=== PATIENT | male | born 1950 | race Caucasian/White ===

== ENCOUNTER 2024-10-07 10:55 | Day surgery (SDC) | payer MEDICARE ==
[2024-10-03 09:58] LABS: MEAN PLATELET VOLUME 8.1 FL (7.4-10.4); RED CELL DISTRIBUTION WIDTH 12.6 % (11.5-14.5)
[2024-10-03 10:26] LABS: CHOL/HDL RATIO 2.3 (0.00-4.99); CREATININE 1.06 MG/DL (0.60-1.10); TOTAL CARBON DIOXIDE 30.0 MMOL/L (24-32); eGFR 69 ML/MIN
[2024-10-03 11:08] LABS: LDL CHOLESTEROL 60 MG/DL (50-100)
[~2024-10-07] VITALS: Ht 182.9 cm; Wt 90.7 kg
[2024-10-07] VITALS (8 sets, daily range): BP systolic 144–167; BP diastolic 77–88; PULSE 55–66; RESP 16; TEMP 97.5; O2SAT 94–98
[~2024-10-07 10:55] MED LIST: ALLO300T8 PO; ASPI-1265 PO; CHOL400T8 PO; EVOL140P3 SQ; NAPR220C15 PO
--- NOTE | 2024-10-07 11:28 | ELECTROCARDIOGRAPH REPORT ---
[facility] Test Date: 2024-10-07 Test Time: 11:15:54 Pat Name: MADDY GARCIA Department: PRE/OP CARDIOLOGY [id number] Room: Gender: M Framer: : 1950 Requested By: STAR GILL Order Number: [id number] Reading MD: Dr. RAMILA Fritz Measurements Intervals [place] Rate: 62 P: 44 W[place]: 150 QRS: 18 QRSD: 98 T: 38 QT: 398 QTc: 405 Interpretive Statements Sinus rhythm Abnormal R-wave progression, early transition Electronically Signed On 10-08-2024 16:52:[address] RAMILA Fritz Please click the below link to view image of tracing.
[2024-10-07 12:06] LABS: APTT 25 SECONDS (22-32); INR 1.0 INR
[2024-10-07] MEDS ORDERED: verapamil 2.5 mg/ml inj IV ONE (12:45)
[2024-10-07] MEDS ORDERED: midazolam 1 mg/ML 2ml injection ONE ×2 (12:45→13:29)
[2024-10-07] MEDS ORDERED: LIDOcaine 1% (10mg/ml) 2ml vial ONE ×2 (12:45→13:12)
[2024-10-07] MEDS ORDERED: heparin 1,000unit/ml 10ml vial 10 ML ONE (12:46)
[2024-10-07] MEDS ORDERED: fentaNYL/PF 50MCG/1 ML 2ML syringe ONE (12:46)
[2024-10-07] MEDS ORDERED: nitroGLYCERIN 500mcg/5mL D5W 5 ML IV ONE (12:47)
[2024-10-07] MEDS ORDERED: LIDOcaine 1% 30ml preserv. free vial ONE (13:40)
[2024-10-07 13:55] LABS: ISTAT HGB ART 13.3 g/dl (14.0-17.9); ISTAT Hct ART 39 %PCV (42-52); ISTAT O2 SATURATION ARTERIAL 87 % (95-98); ISTAT SOURCE ART
[2024-10-07 14:27] LABS: ISTAT HGB MIX 12.6 g/dl (14.0-17.9); ISTAT Hct MIX 37 %PCV (42-52); ISTAT O2 SATURATION MIX VENOUS 71 % (60-80); ISTAT SOURCE VEN
[2024-10-07] MEDS ORDERED: HYDROcodone/acetaminophen 10/325mg tab PO PRN (15:30)
[2024-10-07] MEDS ORDERED: HYDROcodone/acetaminophen 5mg/325mg tablet PO PRN (15:30)
--- NOTE | 2024-10-07 20:35 | CARDIAC CATH REPORT ---
Cardiac Cath Report Providers to CC CC: JOELLE GILL MD Procedure Comments: 1. Right Heart Catheterization 2. Selective Coronary Angiography 3. Right Femoral vein access 4. Right Radial artery access Brief History/Indications: 73yo man with HTN, HLD, Carotid stenosis, Renal artery stenosis, Severe referred for evaluation prior to consideration of AVR. Techniques: After informed consent was obtained, the patient was brought to the cardiac catheterization laboratory and prepped and draped in usual sterile fashion for left heart catheterization and other procedures mentioned above. The right wrist and right groin were anesthetized with 1% Lidocaine. The right radial artery accessed via the Seldinger technique after which a 6Fr sheath was placed. The right femoral vein was accessed via the Seldinger technique after which a 6Fr sheath was placed. The [place] was advanced via the right femoral sheath to the right atrium, the right ventricle, the pulmonary artery, and wedge position. Through the 6Fr right radial sheath, a TIG was used to engage the left coronary artery and the right coronary artery. At the conclusion of the case the sheath was removed and hemostasis obtained with a VascBand for the radial sheath and manual compression for the femoral sheath. Findings Findings: HEMODYNAMICS: RA: 3 mmHg RV: 29/5, RVEDP 8 mmHg PA: 18/9, mPAP 11 mmHg PCWP: 5 mmHg(V-waves to 10mmHg) TP mmHg DP mmHg Ao: 148/70 HR: 55 bpm LV: Not obtained due to known severe PA Sat: 71% Ao Sat: 87% CO/CI (Rey): 6.53/3.07 PVR: 1 MELCHOR CORONARY ARTERIES: Rt Dominant LMCA: Luminal Irregularities LAD: 40% mid stenosis at D1 D1: Ostial 50-60% stenosis. 70-80% stenosis of the inferior branch LCx: Luminal Irregularities OM1: Small OM2: Luminal Irregularities RCA: Luminal Irregularities PDA: Luminal Irregularities PL: Luminal Irregularities Results Results: 1. Obstructive CAD involving the inferior branch of the [place] artery, otherwise, No significant obstructive CAD 2. RRA and RFV access, closed with VascBand and manual compression RECOMMENDATIONS: 1. Agree with referral to [facility] TAVR clinic for evaluation of severe, symptomatic aortic stenosis. STAR GILL MD Oct 07, 2024 20:35
== END 2024-10-07 16:10 | disposition home or self-care (01) ==
LOC: SSTAY O 10:55
PROVIDERS: ATTEND Student in an Organized Health Care Education/Training Program
DX: I35.0 Nonrheumatic aortic (valve) stenosis (principal); I25.10 Atherosclerotic heart disease of native coronary artery without angina pectoris; I10 Essential (primary) hypertension; E78.5 Hyperlipidemia, unspecified; I70.1 Atherosclerosis of renal artery; Z79.01 Long term (current) use of anticoagulants; Z79.899 Other long term (current) drug therapy; Z98.890 Other specified postprocedural states
CPT/HCPCS: 36415; 80048; 80061; 82803; 83695; 85014; 85025; 85610; 85730; 93005; 93456; 99152; A6258; A6402; C1751; C1894; J1644; J2003; J2250; J3010; J3490; J7030; Q0163; Q9967; Z7610; 99153

== ENCOUNTER 2024-11-13 10:50 | Outpatient (CLI) | payer MEDICARE ==
[~2024-11-13 10:50] MED LIST changes: +IODIXANOL 320 MG/ML INFUS..BTL 100ML IV ONE
[2024-11-13 11:38] LABS: MEAN PLATELET VOLUME 8.7 FL (7.4-10.4); RED CELL DISTRIBUTION WIDTH 13.0 % (11.5-14.5)
[2024-11-13 11:49] LABS: APTT 25 SECONDS (22-32); INR 1.0 INR
[2024-11-13 11:57] LABS: CREATININE 1.00 MG/DL (0.60-1.10); PRO BRAIN NATRIURETIC PEPTIDE 109 PG/ML (0-125); TOTAL CARBON DIOXIDE 30.5 MMOL/L (24-32); eGFR 73 ML/MIN
--- NOTE | 2024-11-13 12:08 | RADIOLOGY REPORT ---
DI CHEST,TWO VIEWS CLINICAL HISTORY: SOB COMPARISON: None TECHNIQUE: Frontal and lateral view of the chest was obtained FINDINGS: Lines and Tubes: None Lungs: No focal consolidation. Pleura: No effusion. No pneumothorax. Cardiomediastinal contours: Unremarkable Bones: No acute osseous abnormality. IMPRESSION: No acute cardiopulmonary disease.
--- NOTE | 2024-11-14 17:15 | RADIOLOGY REPORT ---
CT CTA TAVR INDICATION: Stenosis TECHNIQUE: Gated CT angiography of the heart was performed along with CT angiography of the lower neck, chest, abdomen, and pelvis. MIP, MPR, and 3-D images were obtained. Measurements were performed on the [employer] workstation. All CT scans at this facility use dose modulation, iterative reconstruction, and/or weight based dosing when appropriate to reduce radiation dose to as low as reasonably achievable. COMPARISON: CATH HEART CATH W/WO STENT on DOS: 10/07/24 FINDINGS: ANNULAR PLANE DISTANCE: 28.8 x 23.4 mm AREA: 5.34 cm2 AVERAGE DIAMETER: 26.1 mm PERIMETER: 83.6 mm LEFT CORONARY ARTERY HEIGHT ABOVE ANNULAR PLANE: 13 mm RIGHT CORONARY ARTERY HEIGHT ABOVE ANNULAR PLANE: 20.9 mm LEFT CORONARY SINUS DIAMETER: 35.3 mm RIGHT CORONARY SINUS DIAMETER: 34.7 mm NONCORONARY CORONARY SINUS DIAMETER: 33. mm SINOTUBULAR JUNCTION DIAMETER: 25.2 mm RIGHT COMMON ILIAC ARTERY MINIMAL DIMENSIONS: 9.73 mm RIGHT EXTERNAL ILIAC ARTERY MINIMAL DIMENSIONS: 7.86 mm RIGHT COMMON FEMORAL ARTERY MINIMAL DIMENSIONS: 9.3 mm LEFT COMMON ILIAC ARTERY MINIMAL DIMENSIONS: 8.6 mm LEFT EXTERNAL ILIAC ARTERY MINIMAL DIMENSIONS: 8.2 mm LEFT COMMON FEMORAL ARTERY MINIMAL DIMENSIONS: 8.8 mm Optimal C-arm angles 3 cusp view: HE 1, CAU 9 Anterior view: HE 0, CAU 7 No CARPENTER WOODEN TANK ERECTING-CAU view: VICENTE 5, CAU 0 [LOWER NECK]: Unremarkable [LYMPH NODES/MEDIASTINUM]: Mediastinal lymph nodes measuring up to 1.1 cm in the right hilum with bilateral hilar involvement, para-aortic and aortopulmonary window. Overall favor reactive. [CARDIOVASCULAR]: Normal cardiac size. No pericardial effusion. No aneurysmal dilatation of the great vessels. Coronary artery calcifications. prominent coronary artery calcifications along the left anterior descending artery, left circumflex. Slight left ventricular dilation. Basal septal hypertrophy measuring 18 mm. Variant anatomy with separate insertion of the right middle vein into the left atrium [LUNG PARENCHYMA/PLEURAL SPACE]: No consolidation, suspicious focal airspace opacity, or suspicious nodules. No pleural effusion or pneumothorax. [CHEST WALL]: Unremarkable. [LIVER]: Hypoattenuating lesion of the left hepatic lobe measuring 0.9 cm. No further specific imaging follow-up required, presuming no known or unknown increased risk of cancer above societal norms. [SPLEEN]: Unremarkable. [PANCREAS]: Unremarkable. [GALLBLADDER AND BILIARY TREE]: No cholelithiasis. No biliary dilatation. [ADRENAL GLANDS]: Unremarkable [KIDNEYS]: No hydronephrosis. No nephroureterolithiasis. Benign appearing renal cysts, compatible with Bosniak type I cyst. No imaging follow-up required. [BLADDER]: Unremarkable for the degree distention. [PELVIC ORGANS]: Mild to moderate prostatomegaly. [BOWEL/MESENTERY]: Stomach is normal. No CT evidence of bowel obstruction. Normal appendix. There is no free air. Dtun-ad-gksbqkcu stool burden. Sigmoid diverticulosis. [ASCITES]: Absent [LYMPHADENOPATHY]: No pathologically enlarged lymph nodes by CT size criteria [VASCULATURE]: Vascular calcifications. mild possible narrowing of the celiac artery origin [ABDOMINAL WALL]: Small fat-containing umbilical hernia. Small fat containing left inguinal hernia [MUSCULOSKELETAL]: No acute fracture or aggressive focal osseous lesion. Multifocal degenerative change of the visualized spine. IMPRESSION: 1. Calculations for TAVR evaluation as above. 2. Slight left ventricular dilation. Basal septal hypertrophy measuring 18 mm. Variant anatomy with separate insertion of the right middle vein into the left atrium 3. Tmio-gk-sdqfqgnl prostatomegaly. Vngz-bq-wxhzgjzp stool burden. 4. Mediastinal lymph nodes measuring up to 1.1 cm in the right hilum with bilateral hilar involvement, para-aortic and aortopulmonary window. Overall favor reactive.
== END 2024-11-13 23:59 | disposition home or self-care (01) ==
LOC: RAD 10:50
PROVIDERS: ATTEND Internal Medicine Cardiovascular Disease
DX: N28.1 Cyst of kidney, acquired (principal); I65.29 Occlusion and stenosis of unspecified carotid artery; I35.0 Nonrheumatic aortic (valve) stenosis; R06.02 Shortness of breath; N40.0 Benign prostatic hyperplasia without lower urinary tract symptoms; R59.0 Localized enlarged lymph nodes
CPT/HCPCS: 36415; 71046; 71275; 74174; 75572; 80053; 83880; 85025; 85610; 85730; Q9967